=== PATIENT | female | born 1990 | race Caucasian/White ===

== ENCOUNTER 2020-06-11 09:57 | Outpatient (CLI) | payer OTHER, SELFPAY | END 2020-06-11 09:58 | disposition home or self-care (01) | PROVIDERS: PCP Nurse Practitioner Family; Visit Provider Family Medicine | DX: O20.0 Threatened abortion (principal) | CPT/HCPCS: 84702 ==

== ENCOUNTER → 2020-06-17 16:15 | Outpatient (BNVA) | payer OTHER, SELFPAY | PROVIDERS: PCP Nurse Practitioner Family; Visit Provider Nurse Practitioner Family | DX: Z32.01 Encounter for pregnancy test, result positive (principal) | CPT/HCPCS: 84702 ==

== ENCOUNTER 2021-10-02 16:27 | Emergency (ER) | payer BC, MEDICAID, SELFPAY ==
[2021-10-02 16:29] VITALS: BP 118/78; PULSE 74; RESP 16; TEMP 36.9; O2SAT 100
--- NOTE | 2021-10-02 19:34 | W.ED.DIZZY ---
HPI - Dizziness General: Chief Complaint: Dizziness Stated Complaint: Dizzy, light headed, vomiting Time Seen by Provider: 10/02/21 19:32 History of Present Illness: HPI Narrative: 31-year-old female comes in today for complaints of nausea and vomiting. Patient reports about 4 days ago she became overheated and since then she has not been able to recover. Patient reports today she has had persistent vomiting with poor urine output. Patient denies any blood in vomit. Patient reports no diarrhea. Patient reports no fever or chills. Patient reports no pain, except mild body aches. Associated symptoms: Reports nausea and vomiting Review of Systems General: Reports: 10 or more systems reviewed and unremarkable except in HPI and below GI: Reports: nausea and vomiting Neuro: Reports: other (Lightheaded) PFSH ED PFSH: Social History Smoking and tobacco status: never smoked Alcohol intake: never Adopted: No Caregiver/support person: No Household members: children History of recent travel: No Sexually active: Yes Current gender identity: Female Female Reproductive History: Para: 4 Physical Exam Const: COMMON NORMALS: alert HENMT: COMMON NORMALS: normocephalic HEAD & SCALP: normocephalic Neck/C-Spine: COMMON NORMALS: full ROM Resp: COMMON NORMALS: normal respiratory effort and clear to auscultation bilaterally AUSCULTATION: clear to auscultation bilaterally Cardio: COMMON NORMALS: regular rate and regular rhythm RATE: regular rate RHYTHM: regular rhythm GI: COMMON NORMALS: Soft to palpation AUSCULTATION: Yes normoactive bowel sounds PALPATION: Yes Soft to palpation and No Tenderness to palpation present (GI) Extremity: COMMON NORMALS: normal to inspection and no pedal edema Neuro: SENSORIUM/ORIENTATION: Yes alert Skin: COMMON NORMALS: no rashes or lesions noted GENERAL SKIN EXAM: no rashes or lesions noted Course ED course: 2100, patient reports resolution of headache and able to tolerate sips of fluid. Patient reports feeling much better after treatment. Vital Signs: Vital signs: Vital Signs Temperature 98.4 F 10/02/21 16:29 Pulse Rate 63 10/02/21 21:30 Respiratory Rate 14 10/02/21 21:30 Blood Pressure 112/74 10/02/21 21:30 Pulse Oximetry 99 10/02/21 21:30 MDM - Dizziness Medical Decision Making 31-year-old female comes in today for complaints of nausea and vomiting and headache for 4 days. Patient felt that she got overheated 4 days ago and since then has not been able to hold much fluids down. Today got worse for her. On exam abdomen soft nontender. Lungs clear to auscultation. Patient moves all extremities well. No meningeal signs are noted. No focal neurodeficits were noted. Vital signs were normal. Differential diagnosis includes but not limited to heat exhaustion, viral syndrome, gastroenteritis, migraine syndrome, dehydration. Laboratory values are unremarkable. Patient was infused with 1 L of IV fluid, given 10 mg of Reglan, 15 mg Toradol, 10 mg dexamethasone, and 4 mg ondansetron. Patient had resolution of symptoms was able to tolerate sips of fluids in the ER. Patient was recommended to follow-up with primary care return to ER for worsening symptoms or new concerns. Lab Data : 10/02/21 19:42 10/02/21 19:42 Laboratory Results WBC 8.0 10^3/uL (4.0-10.0) 10/02/21 19:42 RBC 4.67 10^6/uL (4.1-5.3) 10/02/21 19:42 Hgb 13.3 g/dL (11.5-15.3) 10/02/21 19:42 Hct 40.5 % (37.0-47.0) 10/02/21 19:42 MCV 86.7 fl (81-99) 10/02/21 19:42 MCH 28.5 pg (28.0-34.0) 10/02/21 19:42 MCHC 32.8 g/dL (30.0-36.0) 10/02/21 19:42 RDW 12.6 % (12.1-15.1) 10/02/21 19:42 Plt Count 268 10^3/cmm (130-400) 10/02/21 19:42 MPV 10.6 fL (7.4-10.4) H 10/02/21 19:42 Neut % (Auto) 67.3 % 10/02/21 19:42 Lymph % (Auto) 24.9 % 10/02/21 19:42 Shoshone % (Auto) 5.8 % 10/02/21 19:42 Eos % (Auto) 0.8 % 10/02/21 19:42 Baso % (Auto) 0.8 % 10/02/21 19:42 Neut # (Auto) 5.36 10^3/uL (1.8-7.7) 10/02/21 19:42 Lymph # (Auto) 2.0 10^3/uL (0.8-4.8) 10/02/21 19:42 [place]oshone # (Auto) 0.5 10^3/uL (0.2-0.9) 10/02/21 19:42 Eos # (Auto) 0.1 10^3/uL (0.0-0.8) 10/02/21 19:42 Baso # (Auto) 0.1 10^3/uL (0.0-0.1) 10/02/21 19:42 Nucleated RBC % (auto) 0 % 10/02/21 19:42 Nucleated RBCs # 0.0 /100WBC 10/02/21 19:42 Sodium 139 mmol/L (136-145) 10/02/21 19:42 Potassium 3.7 mmol/L (3.5-5.1) 10/02/21 19:42 Chloride 103 mmol/L (98-107) 10/02/21 19:42 Carbon Dioxide 26 mmol/L (22-29) 10/02/21 19:42 Anion Gap 13.7 (5-19) 10/02/21 19:42 BUN 9 mg/dL (6-20) 10/02/21 19:42 Creatinine 0.6 mg/dL (0.5-0.9) 10/02/21 19:42 GFR Calculation 115.1 mL/min (90-130) 10/02/21 19:42 Glucose 95 mg/dL (65-115) 10/02/21 19:42 Calculated Osmolality 286 mOsm/kg (285-295) 10/02/21 19:42 Calcium 9.4 mg/dL (8.5-10.5) 10/02/21 19:42 Total Bilirubin 0.4 mg/dL (0.15-1.2) 10/02/21 19:42 AST 13 U/L (0-32) 10/02/21 19:42 ALT 9 U/L (0-33) 10/02/21 19:42 Alkaline Phosphatase 50 IU/L (35-105) 10/02/21 19:42 Creatine Kinase 97 U/L (26-192) 10/02/21 19:42 Total Protein 7.2 g/dL (6.6-8.7) 10/02/21 19:42 Albumin 4.6 g/dL (3.5-5.2) 10/02/21 19:42 Globulin 2.6 g/dL (1.3-4.6) 10/02/21 19:42 HCG, Qual Negative (Negative) 10/02/21 20:00 Urine Color Yellow (Yellow) 10/02/21 21:20 Urine Appearance Clear (CLEAR) 10/02/21 21:20 Urine pH 5 (5-7) 10/02/21 21:20 Ur Specific [place] 1.020 (1.005-1.030) 10/02/21 21:20 Urine Protein Neg (Negative) 10/02/21 21:20 Urine Glucose (UA) Norm (Normal) 10/02/21 21:20 Urine Ketones 2+ (Negative) H 10/02/21 21:20 Urine Blood Neg (Negative) 10/02/21 21:20 Urine Nitrate Negative (Negative) 10/02/21 21:20 Urine Bilirubin Neg (Negative) 10/02/21 21:20 Urine Urobilinogen Norm mg/dL (Negative) 10/02/21 21:20 Ur Leukocyte Esterase Negative (Negative) 10/02/21 21:20 EKG Data EKG 1: EKG interpretation date: 10/02/21 EKG interpretation time: 20:09 Prior EKG tracings: not available for review Interpretation: EKG shows a bradycardic rhythm at 58 bpm that is regular. No ST elevation or ectopy is noted. No prior exam was available for comparison. Discharge Plan Discharge Patient Disposition: Home Clinical Impression: Dehydration Nausea & vomiting Qualifiers: Vomiting type: unspecified Qualified Code(s): R11.2 - Nausea with vomiting, unspecified Condition: Stable Prescriptions: New ondansetron 4 mg tablet,disintegrating 4 mg PO Q8H PRN (Reason: nausea and vomiting) Qty: 7 0RF No Action citalopram [Celexa] 20 mg tablet 20 mg PO DAILY Qty: 30 2RF hydroxyzine pamoate 25 mg capsule 25 mg PO TID PRN (Reason: itching) Qty: 90 2RF Discharge Orders: Discharge ED (Routine); Ordered 10/02/21 Ordered By: Gil Gonzales Referrals: Izabella Pelayo FNP-C [Primary Care Provider] - Discharge Diet: Advance as tolerated Discharge Activity: Increase activity as tolerated Patient Instructions: Clear Liquid Diet (ED) Activity Restrictions/Additional Instructions: Start with first clear liquid diet. Frequent sips of clear liquids such as broths, water, fruit juices, electrolyte solutions, and flat soda. Do this for the next 24 hours and then slowly add back to a full liquid and bland diet. [place] diet consists of apples, toast, bananas, rice, and boiled chicken. Follow-up with primary care for further instructions. Return to ER for blood in vomit or stool, fever greater than 100.4, or severe abdominal pain. Coding Level of Care Code ED Special Needs Babysitter for Uzma Fwd Exam Comprehensive
--- NOTE | 2021-10-02 19:40 | ECG_ITS ---
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 Measurements Intervals Mathews Rate: 58 P: 72 SD: 153 QRS: 89 QRSD: 97 T: 64 QT: 424 QTc: 419 Interpretive Statements SINUS BRADYCARDIA No previous ECG available for comparison Electronically Signed On 10-03-2021 23:43:26 CDT by Jay Villar M.D. [id number]
[2021-10-02] MEDS: sodium chloride 0.9% 1,000 ML 999 ML IV (19:45)
[2021-10-02 19:48] LABS: Basophils # 0.1 10^3/uL (0.0-0.1); Basophils % 0.8 %; Eosinophils # 0.1 10^3/uL (0.0-0.8); Eosinophils % 0.8 %; Hematocrit 40.5 % (37.0-47.0); Hemoglobin 13.3 g/dL (11.5-15.3); Lymphocytes % 24.9 %; Mean Corpuscular HGB Conc 32.8 g/dL (30.0-36.0); Mean Corpuscular Hemoglobin 28.5 pg (28.0-34.0); Mean Corpuscular Volume 86.7 fl (81-99); Mean Platelet Volume 10.6 fL (7.4-10.4); Monocytes # 0.5 10^3/uL (0.2-0.9); Monocytes % 5.8 %; Neutrophils # 5.36 10^3/uL (1.8-7.7); Neutrophils % 67.3 %; Nucleated Red Blood Cells % 0 %; Platelet Count 268 10^3/cmm (130-400); Red Blood Count 4.67 10^6/uL (4.1-5.3); Red Cell Distribution Width 12.6 % (12.1-15.1)
[2021-10-02] MEDS: ondansetron 2 mg/ML SDV 2 mL 4 MG IVP (20:06)
[2021-10-02 20:08] LABS: Alanine Aminotransferase 9 U/L (0-33); Albumin Level 4.6 g/dL (3.5-5.2); Alkaline Phosphatase 50 IU/L (35-105); Anion Gap 13.7 (5-19); Aspartate Amino Transferase 13 U/L (0-32); Blood Urea Nitrogen 9 mg/dL (6-20); Calcium 9.4 mg/dL (8.5-10.5); Carbon Dioxide 26 mmol/L (22-29); Chloride 103 mmol/L (98-107); Creatine Phosphokinase 97 U/L (26-192); Globulin 2.6 g/dL (1.3-4.6); Glomerular Filtration Rate 115.1 mL/min (90-130); Glucose 95 mg/dL (65-115); Osmolality Calculated 286 mOsm/kg (285-295); Potassium 3.7 mmol/L (3.5-5.1); Sodium 139 mmol/L (136-145); Total Bilirubin 0.4 mg/dL (0.15-1.2); Total Protein 7.2 g/dL (6.6-8.7)
[2021-10-02 20:29] LABS: HCG, Serum Qual Negative (Negative)
[2021-10-02] MEDS: ketorolac 30 mg/mL INJ 15 MG IVP (20:32)
[2021-10-02] MEDS: dexamethasone 4 mg/mL INJ 10 MG IVP (20:32)
[2021-10-02] MEDS: metoclopramide 5 mg/mL SDV 2 mL 10 MG IVP (20:50)
[2021-10-02 21:30] VITALS: BP 112/74; PULSE 63; RESP 14; O2SAT 99
[2021-10-02 21:33] LABS: Add Urine Microscopic? NO; Charge for UA Resulting for Rev
[2021-10-02 21:35] LABS: Bilirubin Urine Neg (Negative); Blood Urine Neg (Negative); Glucose Urine UA Norm (Normal); Ketones Urine 2+ (Negative); Leukocyte Esterase Urine Negative (Negative); Nitrate Urine Negative (Negative); Protein Urine Neg (Negative); Urine Appearance Clear (CLEAR); Urine Color Yellow (Yellow); Urobilinogen Urine Norm (Negative); pH Urine 5 (5-7)
[2021-10-02 21:55] VITALS: BP 112/74; PULSE 63; RESP 14; O2SAT 99
== END 2021-10-02 21:56 | disposition home or self-care (01) ==
PROVIDERS: Emergency Provider Nurse Practitioner Family; PCP Nurse Practitioner Family
DX: R11.2 Nausea with vomiting, unspecified (principal); E86.0 Dehydration
CPT/HCPCS: 80053; 81003; 82550; 84703; 85025; 93005; 96361; 96374; 96375; 99284; J1100; J1885; J2405; J2765; J7030

== ENCOUNTER 2021-11-12 13:24 | Emergency (ER) | payer BC, MEDICAID, SELFPAY ==
[2021-11-12] VITALS (7 sets, daily range): BP systolic 109–120; BP diastolic 68–84; PULSE 86–108; RESP 15–20; TEMP 36.8; O2SAT 99–100
--- NOTE | 2021-11-12 13:43 | CTR_ITS ---
PROCEDURE INFORMATION: Exam: CT Head Without Contrast Exam date and time: 11/12/2021 2:25 PM Age: 31 years old Clinical indication: Injury or trauma; Other: Bucked off horse; Blunt trauma (contusions or hematomas); Consciousness not specified; Additional info: Bucked off horse and hit head TECHNIQUE: Imaging protocol: Computed tomography of the head without contrast. Axial, coronal and sagittal reformatted images were created and reviewed. Radiation optimization: All CT scans at this facility use at least one of these dose optimization techniques: automated exposure control; mA and/or kV adjustment per patient size (includes targeted exams where dose is matched to clinical indication); or iterative reconstruction. COMPARISON: No relevant prior studies available. RADIATION DOSE METRICS: Total DLP (mGy-cm): 153.2 FINDINGS: Brain: No CT evidence of acute intracranial hemorrhage or acute territorial infarction. No significant mass effect or midline shift. Basal cisterns patent. Cerebral ventricles: Normal in size and configuration. Paranasal sinuses: Unremarkable. No fluid levels. Mastoid air cells: Partial opacification of the left mastoid air cells. Bones/joints: No acute osseous abnormality. Soft tissues: Grossly unremarkable. CT/CT head wo con* [id number] IMPRESSION: 1. No CT evidence of acute intracranial pathology. 2. Additional findings, as above.
--- NOTE | 2021-11-12 13:43 | CTR_ITS ---
PROCEDURE INFORMATION: Exam: CT Cervical Spine Without Contrast Exam date and time: 11/12/2021 2:25 PM Age: 31 years old Clinical indication: Injury or trauma; Other: Bucked off horse; Blunt trauma; Additional info: Bucked off horse and hit head TECHNIQUE: Imaging protocol: Computed tomography of the cervical spine without contrast. Axial, coronal and sagittal reformatted images were created and reviewed. Radiation optimization: All CT scans at this facility use at least one of these dose optimization techniques: automated exposure control; mA and/or kV adjustment per patient size (includes targeted exams where dose is matched to clinical indication); or iterative reconstruction. COMPARISON: No relevant prior studies available. RADIATION DOSE METRICS: Total DLP (mGy-cm): 153.2 FINDINGS: Bones/joints: Straightening of the normal cervical lordosis. No CT evidence of acute fracture, dislocation or subluxation. Alignment anatomic. Minimal dextroscoliosis. Vertebral body heights maintained. Discs/Spinal canal/Neural foramina: Intervertebral disc spaces preserved. No significant spinal canal or neural foraminal stenosis. Lungs: Biapical pleural thickening. Soft tissues: Grossly unremarkable. CT/CT cervical spin wo con* [id number]: 1[address] No CT evidence of acute cervical spine traumatic injury. 2. Additional findings, as above.
--- NOTE | 2021-11-12 13:53 | W.ED.TRAUMA ---
HPI - Trauma General: Chief Complaint: Trauma Stated Complaint: Bucked off horse, memory loss, hit head Time Seen by Provider: 11/12/21 13:53 History of Present Illness: Ms. Medeiros is a 31-year-old lady without significant past medical history presents to the emergency department due to traumatic injury. She was riding a horse when she was thrown off and struck her head. She landed on her back and immediately back pain. She positive loss of consciousness without recollection of events. Currently endorses bilateral back pain in the lower back. Intensity symptoms is moderate to severe and worse with palpation and movement. Denies distal paresthesias. No other specific changes in health, exacerbating, or alleviating factors identified. Onset (ago): minute(s) Loss of Consciousness: yes Severity: moderate Context: fall and other Review of Systems General: Reports: 10 or more systems reviewed and unremarkable except in HPI and below [facility] ED PFSH: Medical History (Updated 11/24/21 @ 21:31 by Flash Landeros MD) No significant past medical history Surgical History (Updated 11/24/21 @ 21:31 by Flash Landeros MD) No significant past surgical history Social History Smoking and tobacco status: never smoked Alcohol intake: never Adopted: No Caregiver/support person: No Household members: children History of recent travel: No Sexually active: Yes Current gender identity: Female Female Reproductive History: Para: 4 Physical Exam Const: COMMON NORMALS: alert GENERAL APPEARANCE: cooperative and well developed HENMT: COMMON NORMALS: normocephalic and atraumatic HEAD & SCALP: normocephalic and atraumatic OTHER: No mina signs or raccoon eyes. No hemotympanum. No otorrhea or rhinorrhea. Jaw alignment normal. Dentition baseline. No obvious bony step-offs. No septal hematoma. No evidence of ocular entrapment. Eye: COMMON NORMALS: conjunctivae normal CONJUNCTIVA: Yes conjunctivae normal SCLERA: sclerae normal Neck/C-Spine: GENERAL: Yes trachea midline and Yes tender Chest: CHEST: Yes tenderness Resp: COMMON NORMALS: normal respiratory effort and clear to auscultation bilaterally EFFORT & INSPECTION: Yes able to speak in complete sentences AUSCULTATION: clear to auscultation bilaterally Cardio: COMMON NORMALS: regular rate and regular rhythm RATE: regular rate RHYTHM: regular rhythm GI: COMMON NORMALS: Soft to palpation PALPATION: Yes Soft to palpation, Yes Tenderness to palpation present (GI), No Guarding due to palpation present (GI) and No Rigid due to palpation Back/Pelvis: GENERAL BACK: Yes tenderness Extremity: GENERAL: Yes normal exam except as noted and No edema Neuro: COMMON NORMALS: moves all extremities SENSORIUM/ORIENTATION: Yes alert and No Orientation impaired Psych: COMMON NORMALS: mental status grossly normal and Normal thought process present THOUGHT PROCESS: Normal thought process present Course ED course: - Patient was seen and evaluated by me at bedside - Patient placed on cardiac monitors, IV access obtained - Initial evaluation notable for exam as above. Head to toe exam performed - Labs ersonally interpreted by me - analgesia, and antiemetic given - Labs notable for negative hCG -Given mechanism of injury, clinical history, and physical exam findings advanced imaging is required. Imaging notable for no acute internal or bony injury from trauma - Upon serial reexamination after treatment the patient was improved. Patient able to ambulate. - Based on patient history, evaluation, and testing as interpreted the most likely cause of the patient's condition is soft tissue contusion and injury secondary to traumatic injury and TBI related to head injury with loss of consciousness - The results of ED evaluation were discussed with the patient including prescriptions and/or symptomatic cares (if applicable) including appropriate and responsible use, followup plan, and return precautions. The patient verbalized understanding and felt safe for discharge. - Patient discharged in satisfactory condition. Note: Click bubbles or prepopulated allen in note writing are used for assistance with data collection and billing and are inherently more limited than narrative and other text portions of this note. Please use narrative for additional clinical history and defer to narrative/free test for any case of contradictory information. If information appears in only free text or click bubble it should be considered present or absent as reported. Please contact note publicity writer for clarifications of clinical information or contradictory information. MDM is a brief summary, contradictory or erroneous seeming information should be clarified and full note should be reviewed. Vital Signs: Vital signs: Vital Signs Temperature 98.2 F 11/12/21 13:41 Pulse Rate 88 11/12/21 15:32 Respiratory Rate 15 11/12/21 15:32 Blood Pressure 109/68 11/12/21 15:32 Pulse Oximetry 100 11/12/21 15:32 Oxygen Delivery Me thod 11/12/21 15:32 MDM - Trauma Medical Decision Making 31-year-old lady presenting after fall from horse with positive loss of consciousness. CTs negative for acute traumatic internal or bony injury. Satisfactory for outpatient management. Medical Records I reviewed the patient's medical records. Lab Data I reviewed the patient's lab results. Radiology Impressions Cervical Spine CT 11/12/21 13:[address]: [address] evidence of acute cervical spine traumatic injury. 2. Additional findings, as above. Head CT 11/12/21 13:[address]: [address] evidence of acute intracranial pathology. 2. Additional findings, as above. Chest/Abdomen/Pelvis CT 11/12/21 13:[address]PRESS[address]: 1[address] evidence of acute intrathoracic traumatic injury. 2. Additional findings, as above. IMPRESSION: 1. No CT evidence of acute intra-abdominal or pelvic traumatic injury. 2. Additional findings, as above. Laboratory Results HCG, Qual Negative (Negative) 11/12/21 13:35 Discharge Plan Discharge Patient Disposition: Home Clinical Impression: Animal-rider injured by fall from or being thrown from horse in noncollision accident, initial encounter, Head injury due to trauma Condition: Stable Prescriptions: New ondansetron 4 mg tablet,disintegrating 4 mg PO Q8H PRN (Reason: nausea and vomiting) Qty: 15 0RF methocarbamol 750 mg tablet 750 mg PO Q8H Qty: 14 0RF oxycodone 5 mg tablet 5 mg PO Q4H PRN (Reason: pain) Qty: 20 0RF No Action amitriptyline 25 mg tablet 25 mg PO DAILY Qty: 30 0RF Discharge Orders: Discharge ED (Routine); Ordered 11/12/21 Ordered By: Flash Landeros Referrals: Izabella Pelayo FNP-C [Primary Care Provider] - Discharge Diet: Usual diet Discharge Activity: Increase activity as tolerated Patient Instructions: Head Injury (ED), Contusion in Adults (ED), Opioid Safety Activity Restrictions/Additional Instructions: Thank you for visiting the emergency department. You were seen and evaluated for being thrown from a horse. No acute internal traumatic or bony injury was identified. Given loss of consciousness you likely have a concussion. Additionally you have contusions which likely explains your back pain. Please use Tylenol, ibuprofen, heat, ice, in addition to this I will prescribe oxycodone and a muscle relaxer. Please use these cautiously as they can cause sedation. Please follow-up with your primary care provider. Return to the emergency department for uncontrolled symptoms or anything else that you are concerned about a feel needs emergency department evaluation. Coding Level of Care Code ED Orthopedic Radiologic Technologist for Uzma Cherry
--- NOTE | 2021-11-12 13:57 | CTR_ITS ---
PROCEDURE INFORMATION: Exam: CT Chest With Contrast; Diagnostic Exam date and time: 11/12/2021 2:30 PM Age: 31 years old Clinical indication: Injury or trauma; Other: Bucked off horse; Generalized; Blunt trauma (contusions or hematomas); Injury date: 11/12/2021; Injury details: Bucked off a horse, hit head, loc; Prior surgery; Surgery date: 1-6 months; Surgery type: Btl; Additional info: Trauma, low back and side pain TECHNIQUE: Imaging protocol: Diagnostic computed tomography of the chest with contrast. Axial, coronal and sagittal reformatted images were created and reviewed. Radiation optimization: All CT scans at this facility use at least one of these dose optimization techniques: automated exposure control; mA and/or kV adjustment per patient size (includes targeted exams where dose is matched to clinical indication); or iterative reconstruction. Contrast material: 350OMNI; Contrast volume: 80 ml; Contrast route: INTRAVENOUS (IV); COMPARISON: CT cervical spin wo con* [id number] 11/12/2021 2:25 PM RADIATION DOSE METRICS: Total DLP (mGy-cm): 736.35 FINDINGS: Lungs: Unremarkable. No consolidation. No mass. Pleural spaces: Biapical pleural thickening. No pleural effusion. No pneumothorax. Heart: Unremarkable. No cardiomegaly. No pericardial effusion. Lymph nodes: No pathologically enlarged lymph nodes. Vasculature: Unremarkable. No aortic aneurysm. Diaphragm: Elevated left hemidiaphragm. Bones/joints: No acute osseous abnormality. Soft tissues: Breast implants in place. PROCEDURE INFORMATION: Exam: CT Abdomen And Pelvis With Contrast Exam date and time: 11/12/2021 2:30 PM Age: 31 years old Clinical indication: Injury or trauma; Other: Bucked off horse; Generalized; Blunt trauma (contusions or hematomas); Injury date: 11/12/2021; Injury details: Bucked off a horse, hit head, loc; Prior surgery; Surgery date: 1-6 months; Surgery type: Btl; Additional info: Trauma, low back and side pain TECHNIQUE: Imaging protocol: Computed tomography of the abdomen and pelvis with contrast. Axial, coronal and sagittal reformatted images were created and reviewed. Radiation optimization: All CT scans at this facility use at least one of these dose optimization techniques: automated exposure control; mA and/or kV adjustment per patient size (includes targeted exams where dose is matched to clinical indication); or iterative reconstruction. Contrast material: 350OMNI; Contrast volume: 80 ml; Contrast route: INTRAVENOUS (IV); COMPARISON: [facility] [place] Pelvis AP 01/05/2015 8:50 AM RADIATION DOSE METRICS: Total DLP (mGy-cm): 736.35 FINDINGS: Liver: Unremarkable. Gallbladder and bile ducts: No radiodense gallstones. No biliary ductal dilatation. Pancreas: Unremarkable. Spleen: Unremarkable. Adrenal glands: Normal. No mass. Kidneys and ureters: No mass. No radiodense calculi. No hydronephrosis. Stomach and bowel: No bowel wall thickening. No obstruction. No pneumatosis. Appendix: Appendix not identified with certainty but no right lower quadrant inflammatory change to suggest acute appendicitis. Intraperitoneal space: Trace nonspecific free pelvic fluid, likely physiologic. No organized fluid collection. No free air. Vasculature: Unremarkable. No aneurysm. Lymph nodes: No pathologically enlarged lymph nodes. Urinary bladder: Unremarkable as visualized. Reproductive: Evidence of prior tubal ligation. Bones/joints: No acute osseous abnormality. Soft tissues: Unremarkable. CT/CT chest abd pel w con* IMPRESSION: 1. No CT evidence of acute intrathoracic traumatic injury. 2. Additional findings, as above. IMPRESSION: 1. No CT evidence of acute intra-abdominal or pelvic traumatic injury. 2. Additional findings, as above.
[2021-11-12] MEDS: morphine 4 mg/mL SDV 1 mL IVP ×2 (14:00→15:27)
[2021-11-12 14:47] LABS: HCG, Serum Qual Negative (Negative)
[2021-11-12] MEDS: iohexol 350 mg/mL 100 mL Btl IV (14:55)
== END 2021-11-12 16:08 | disposition home or self-care (01) ==
PROVIDERS: Emergency Provider Emergency Medicine; PCP Nurse Practitioner Family
DX: S09.90XA Unspecified injury of head, initial encounter (principal); V80.010A Animal-rider injured by fall from or being thrown from horse in noncollision accident, initial encounter
CPT/HCPCS: 70450; 71260; 72125; 74177; 84703; 96374; 96376; 99285; J2270; Q9967

== ENCOUNTER 2021-11-17 11:12 | Emergency (ER) | payer BC, MEDICAID, SELFPAY ==
[2021-11-17 11:23] VITALS: BP 127/80; PULSE 86; RESP 16; TEMP 36.9; O2SAT 100
--- NOTE | 2021-11-17 11:29 | CT_ITS ---
WS: [id number] CT HEAD TECHNIQUE: Noncontrast CT of the head obtained from the skullbase to the vertex. CLINICAL INFORMATION: fall injury from horse 4 days ago. severe headache COMPARISON: CT January 12, 2022 DLP: 1217.[address] scans at [facility] use at least one of these dose optimization techniques: automated e xposure control; mA and/or kV adjustment per patient size (includes targeted exams where dose is matc hed to clinical indication); or iterative reconstruction. FINDINGS: No evidence of intracranial hemorrhage or mass effect. Ventricular system and basal cisterns are thurston nt. No extra-axial fluid collections. No evidence of mass or mass effect. Normal molina-white differen tiation. Cerebellar tonsillar ectopia unchanged. Paranasal sinuses and mastoid air cells are well aerated. .Normal visualized soft tissues. CT/CT head wo con* [id number] IMPRESSION: 1. No evidence of intracranial hemorrhage or mass effect. 2. No acute intracranial findings.
[2021-11-17 12:26] VITALS: BP 115/78; PULSE 67; O2SAT 99
[2021-11-17 13:00] VITALS: BP 126/79; PULSE 67; O2SAT 99
[2021-11-17 13:00] LABS: Basophils % 0.5 %; Eosinophils % 0.3 %; Hematocrit 37.7 % (37.0-47.0); Hemoglobin 12.4 g/dL (11.5-15.3); Lymphocytes # 1.2 10^3/uL (0.8-4.8); Lymphocytes % 15.3 %; Mean Corpuscular HGB Conc 32.9 g/dL (30.0-36.0); Mean Corpuscular Hemoglobin 28.3 pg (28.0-34.0); Mean Corpuscular Volume 86.1 fl (81-99); Mean Platelet Volume 10.6 fL (7.4-10.4); Monocytes # 0.5 10^3/uL (0.2-0.9); Monocytes % 5.7 %; Neutrophils # 6.15 10^3/uL (1.8-7.7); Neutrophils % 77.8 %; Nucleated Red Blood Cells % 0 %; Platelet Count 266 10^3/cmm (130-400); Red Blood Count 4.38 10^6/uL (4.1-5.3); Red Cell Distribution Width 12.4 % (12.1-15.1); White Blood Count 7.9 10^3/uL (4.0-10.0)
--- NOTE | 2021-11-17 13:13 | W.ED.HEATRA ---
HPI - Head Injury General: Chief complaint: Head Injury Stated complaint: headpain, post injury to head Time Seen by Provider: 11/17/21 12:28 Source: patient Mode of arrival: ambulatory Limitations: no limitations History of Present Illness: 31-year-old female who is seen 5 days ago after a fall from horse which resulted in loss of consciousness. She has had severe headaches nausea vomiting and dizziness. She gets severe dizziness whenever she stands. She was seen initially after the accident head CT was negative. Her symptoms have persisted particularly when she exerts herself in any way. MD Complaint: head injury Onset (ago): day(s) (5) Mechanism of Injury: fall Place: home Loss of Consciousness: yes Location of injury: occipital Severity: moderate Quality: dull Radiation: none Other Injuries: none Associated symptoms: Reports amnesia, confusion and neck pain; Deny nausea Review of Systems Const: Denies: fever(s), chills, body aches, change in appetite, fatigue or malaise ENMT: Denies: throat pain, ear or mastoid pain, nasal discharge or nasal congestion Card: Denies: chest pain, edema, dyspnea on exertion or orthopnea Resp: Denies: dyspnea, productive cough or non-productive cough GI: Denies: nausea : Denies: flank pain, difficulty voiding, dysuria, urinary frequency or urinary urgency Musc: Reports: neck pain Skin/Breast: Denies: rash or pruritus Neuro: Reports: headache(s) and confusion PFSH ED PFSH: Social History Smoking and tobacco status: never smoked Alcohol intake: never Adopted: No Caregiver/support person: No Household members: children History of recent travel: No Sexually active: Yes Current gender identity: Female Female Reproductive History: Para: 4 Physical Exam Const: COMMON NORMALS: no acute distress GENERAL APPEARANCE: cooperative and comfortable ORIENTATION/CONSCIOUSNESS: Yes awake, Yes oriented to person, Yes oriented to place and Yes oriented to time HENMT: COMMON NORMALS: normocephalic, atraumatic, hearing grossly normal bilaterally, external ears normal, EAC's normal, TM's normal bilaterally, Normal nasal mucous membranes and turbinates present, moist oral mucous membranes and oropharynx normal HEAD & SCALP: normocephalic and atraumatic NOSE: Normal nasal mucous membranes and turbinates present EXTERNAL EAR: Yes external ears normal EXTERNAL AUDITORY CANAL: EAC's normal TYMPANIC MEMBRANE: TM's normal bilaterally Eye: COMMON NORMALS: Equal, round and reactive pupils present, EOMs intact bilaterally, conjunctivae normal and no scleral icterus CONJUNCTIVA: Yes conjunctivae normal PUPIL: Yes Equal, round and reactive pupils present Neck/C-Spine: COMMON NORMALS: full ROM, no lymphadenopathy, supple and no JVD Resp: COMMON NORMALS: normal respiratory effort, No retractions, No use of accessory muscles and clear to auscultation bilaterally AUSCULTATION: clear to auscultation bilaterally Cardio: COMMON NORMALS: no JVD, regular rate, regular rhythm and No murmurs present (Cardio) RATE: regular rate RHYTHM: regular rhythm GI: COMMON NORMALS: Soft to palpation and No hepatosplenomegaly present AUSCULTATION: Yes normoactive bowel sounds PALPATION: Yes Soft to palpation, No Tenderness to palpation present (GI), No Guarding due to palpation present (GI) and Yes No hepatosplenomegaly present Extremity: COMMON NORMALS: normal to inspection, capillary refill normal, no clubbing, cyanosis or edema, no calf tenderness and no pedal edema Neuro: SENSORIUM/ORIENTATION: Yes oriented to person, Yes oriented to place and Yes oriented to time Skin: COMMON NORMALS: no rashes or lesions noted GENERAL SKIN EXAM: no rashes or lesions noted Course Vital Signs: Vital signs: Vital Signs Temperature 98.5 F 11/17/21 11:23 Pulse Rate 68 11/17/21 14:00 Respiratory Rate 16 11/17/21 11:23 Blood Pressure 105/74 11/17/21 14:00 Pulse Oximetry 100 11/17/21 14:00 Oxygen Delivery Me thod 11/17/21 14:00 MDM - Head Injury Medcial Decision Making Postconcussive syndrome with headache. She has been using a lot of phone working on her computer a lot discussed with think she will need to take a break from this she wanted to get started on something to help she can use Tylenol ibuprofen and put her on amitriptyline. We will get her referred over to neurology. Discussed with her that we will probably have to have a graduated return to regular activities and may take some time since she had a pretty significant concussive injury. I think seeing neurologist is appropriate for her. Medical Records I reviewed the patient's medical records. Lab Data I reviewed the patient's lab results. : 11/17/21 12:52 11/17/21 12:[address] 11/17/21 11:29 IMPRESSION: 1. No evidence of intracranial hemorrhage or mass effect. 2. No acute intracranial findings. Laboratory Results WBC 7.9 10^3/uL (4.0-10.0) 11/17/21 12:52 RBC 4.38 10^6/uL (4.1-5.3) 11/17/21 12:52 Hgb 12.4 g/dL (11.5-15.3) 11/17/21 12:52 Hct 37.7 % (37.0-47.0) 11/17/21 12:52 MCV 86.1 fl (81-99) 11/17/21 12:52 MCH 28.3 pg (28.0-34.0) 11/17/21 12:52 MCHC 32.9 g/dL (30.0-36.0) 11/17/21 12:52 RDW 12.4 % (12.1-15.1) 11/17/21 12:52 Plt Count 266 10^3/cmm (130-400) 11/17/21 12:52 MPV 10.6 fL (7.4-10.4) H 11/17/21 12:52 Neut % (Auto) 77.8 % 11/17/21 12:52 Lymph % (Auto) 15.3 % 11/17/21 12:52 Dixon % (Auto) 5.7 % 11/17/21 12:52 Eos % (Auto) 0.3 % 11/17/21 12:52 Baso % (Auto) 0.5 % 11/17/21 12:52 Neut # (Auto) 6.15 10^3/uL (1.8-7.7) 11/17/21 12:52 Lymph # (Auto) 1.2 10^3/uL (0.8-4.8) 11/17/21 12:52 Dixon # (Auto) 0.5 10^3/uL (0.2-0.9) 11/17/21 12:52 Eos # (Auto) 0.0 10^3/uL (0.0-0.8) 11/17/21 12:52 Baso # (Auto) 0.0 10^3/uL (0.0-0.1) 11/17/21 12:52 Nucleated RBC % (auto) 0 % 11/17/21 12:52 Nucleated RBCs # 0.0 /100WBC 11/17/21 12:52 Sodium 139 mmol/L (136-145) 11/17/21 12:52 Potassium 3.8 mmol/L (3.5-5.1) 11/17/21 12:52 Chloride 102 mmol/L (98-107) 11/17/21 12:52 Carbon Dioxide 26 mmol/L (22-29) 11/17/21 12:52 Anion Gap 14.8 (5-19) 11/17/21 12:52 BUN 10 mg/dL (6-20) 11/17/21 12:52 Creatinine 0.7 mg/dL (0.5-0.9) 11/17/21 12:52 GFR Calculation 96.4 mL/min (90-130) 11/17/21 12:52 Glucose 91 mg/dL (65-115) 11/17/21 12:52 Calculated Osmolality 287 mOsm/kg (285-295) 11/17/21 12:52 Calcium 9.1 mg/dL (8.5-10.5) 11/17/21 12:52 Discharge Plan Discharge Patient Disposition: Home Clinical Impression: Concussion, Animal-rider injured by fall from or being thrown from horse in noncollision accident, subsequent encounter, Postconcussion syndrome Condition: Stable Prescriptions: New amitriptyline 25 mg tablet 25 mg PO DAILY Qty: 30 0RF No Action ondansetron 4 mg tablet,disintegrating 4 mg PO Q8H PRN (Reason: nausea and vomiting) Qty: 15 0RF methocarbamol 750 mg tablet 750 mg PO Q8H Qty: 14 0RF oxycodone 5 mg tablet 5 mg PO Q4H PRN (Reason: pain) Qty: 20 0RF Discharge Orders: Discharge ED (Routine); Ordered 11/17/21 Ordered By: Carroll Antoine Referrals: Izabella Pelayo FNP-C [Primary Care Provider] - Discharge Diet: Usual diet Discharge Activity: Increase activity as tolerated Patient Instructions: Post Concussion Syndrome (ED), Chronic Post Traumatic Headache (ED), Opioid Safety Activity Restrictions/Additional Instructions: remote encoding center manager will call to make arrangements for her to follow-up with neurology. Coding Level of Care Code ED Veteran Appeals Reviewer for Uzma Cherry
[2021-11-17 13:17] LABS: Anion Gap 14.8 (5-19); Blood Urea Nitrogen 10 mg/dL (6-20); Calcium 9.1 mg/dL (8.5-10.5); Carbon Dioxide 26 mmol/L (22-29); Chloride 102 mmol/L (98-107); Glomerular Filtration Rate 96.4 mL/min (90-130); Glucose 91 mg/dL (65-115); Osmolality Calculated 287 mOsm/kg (285-295); Potassium 3.8 mmol/L (3.5-5.1); Sodium 139 mmol/L (136-145)
[2021-11-17 13:30] VITALS: BP 114/77; PULSE 68; O2SAT 100
[2021-11-17 14:00] VITALS: BP 105/74; PULSE 68; O2SAT 100
[2021-11-17] MEDS: promethazine 25 mg/mL SDV 1 mL IM (14:21)
[2021-11-17] MEDS: ketorolac 30 mg/mL INJ IVP (14:22)
[2021-11-17 15:05] VITALS: BP 117/66; PULSE 55; O2SAT 100
--- NOTE | 2021-11-18 14:28 | DCPLANNER ---
Addendum entered by Olivia Robledo 12/10/21 11:59: Patients appointment scheduled with neurology - appointment cancelled Addendum entered by Olivia Robledo 11/24/21 14:54: Patient has a follow up appointment scheduled for Monday, December 08, 2021 at 12:[address] Early at neurology. Clinic will call patient with appointment information. Original Note: manager managed care had message to schedule a follow up appointment for patient with neurology. manager managed care sent patients information to the front office staff at neurology. Patients information will be printed and reviewed. Clinic will call patient with appointment information.
== END 2021-11-17 14:50 | disposition home or self-care (01) ==
PROVIDERS: Emergency Provider Family Medicine; PCP Nurse Practitioner Family
DX: S06.0X9A Concussion with loss of consciousness of unspecified duration, initial encounter (principal); F07.81 Postconcussional syndrome; V80.010A Animal-rider injured by fall from or being thrown from horse in noncollision accident, initial encounter
CPT/HCPCS: 70450; 80048; 85025; 96372; 96374; 99285; J1885; J2550

== ENCOUNTER → 2023-04-04 09:23 | Outpatient (BNVA) | payer BC, MEDICAID, SELFPAY | PROVIDERS: PCP Nurse Practitioner Family; Visit Provider Nurse Practitioner Family | DX: M54.9 Dorsalgia, unspecified (principal); R50.9 Fever, unspecified; J10.1 Influenza due to other identified influenza virus with other respiratory manifestations; Z79.899 Other long term (current) drug therapy | CPT/HCPCS: 81000; 87400; 87426 ==

== ENCOUNTER → 2023-04-05 15:07 | Outpatient (BNVA) | payer BC, MEDICAID, SELFPAY | PROVIDERS: PCP Nurse Practitioner Family; Visit Provider Nurse Practitioner Family | DX: J02.9 Acute pharyngitis, unspecified (principal) | CPT/HCPCS: 87071; 87880 ==

== ENCOUNTER → 2024-10-17 10:22 | Outpatient (BNVA) | payer BC, MEDICAID, SELFPAY | PROVIDERS: Family Provider Nurse Practitioner Family; PCP Nurse Practitioner Family; Visit Provider Nurse Practitioner Family | DX: R61 Generalized hyperhidrosis (principal); R53.83 Other fatigue | CPT/HCPCS: 71046; 80053; 82306; 82607; 82672; 83001; 83002; 84144; 84403; 84443; 85025; 85651; 86140 ==